=== PATIENT | male | born 1995 | race Caucasian/White ===

== ENCOUNTER 2022-08-26 21:39 | Emergency (ER) | payer OTHER, SELFPAY ==
--- NOTE | 2022-08-26 21:48 | DI.RAD.S_ITS ---
PROCEDURE: XR ANKLE LT MIN 3V INDICATIONS: pain TECHNIQUE: 3 views of the ankle were acquired. COMPARISON: None. FINDINGS: Bones: No fractures or dislocations. Ankle mortise is normally aligned. No suspicious bony lesions. Soft tissues: No tibiotalar joint effusion. Achilles tendon appears normal. IMPRESSION: No acute ankle fracture or dislocation. Ankle mortise is congruent. Dictated by: Nguyễn Hensley M.D. on 08/26/2022 at 22:12 Approved by: Nguyễn Hensley M.D. on 08/26/2022 at 22:13
[2022-08-26 21:49] VITALS: BP 101/62; PULSE 77; RESP 18; TEMP 36.6; O2SAT 97; BMI 28.5
--- NOTE | 2022-08-26 22:20 | ED_ITS ---
HPI - Extremity Injury (Lower) General Chief Complaint: Extremity Injury, Lower Stated Complaint: left foot injury Time Seen by Provider: 08/26/22 21:45 Source: patient Mode of arrival: Ambulatory Limitations: no limitations History of Present Illness HPI Narrative: Patient is a 27-year-old male here for evaluation of a left ankle injury. He states that earlier in the day he was at the [facility]. He states that he landed awkward on his left ankle. Has had some swelling and discomfort since then. Has been ambulatory but it is quite uncomfortable. No other injuries from the event. Related Data Allergies Allergy/AdvReac Type Severity Reaction Status Date / Time No Known Drug Allergies Allergy Verified 08/26/22 21:49 Review of Systems Musculoskeletal Musculoskeletal: Reports system reviewed and no additional complaints, except as documented Integumentary/Breasts Skin/Breast: Reports system reviewed and no additional complaints, except as documented Neurologic Neurologic: Reports system reviewed and no additional complaints, except as documented Patient History Medical History Healthy adult Social History Smoking Status: Never smoker Smoking Status: Never smoker Substance Use Type: does not use Exam Initial Vital Signs Initial Vital Signs: Vital Signs Temperature 98 F 08/26/22 21:49 Pulse Rate 77 08/26/22 21:49 Respiratory Rate 18 08/26/22 21:49 Blood Pressure 101/62 08/26/22 21:49 Pulse Oximetry 97 08/26/22 21:49 Oxygen Delivery Method 08/26/22 21:49 HENGA Head: normal to inspection Cardio Pulses: dorsalis pedis present on the left Skin General: no rashes or lesions noted Neuro Other: Tingling sensation to light touch on the dorsum of the left ankle Extrem Other: No proximal fibula tenderness. His Achilles tendon is intact. Is tender along the lateral and medial joint lines. No tenderness of the Lisfranc joint. Procedures Orthopedic Splinting/Casting Injury #1: Side: left Lower Extremity Injury Location: ankle Lower Extremity Immobilizer: Torsten wrap Post splinting neuro exam: no change Post splinting vascular exam: no change Placed by: Nursing Course Orders Ordered: ED Orders 08/26/22 21:48 XR ankle LT min 3V Stat Vital Signs Vital signs: Vital Signs - 8 hr 08/26/22 21:49 Temperature 98 F Pulse Rate 77 Respiratory Rate 18 Blood Pressure 101/62 Pulse Oximetry 97 Oxygen Delivery Method Room Air MDM - Extremity Injury (Lower) Imaging Data Extremity x-ray #1: Radiologist's Impression: [address] [address] XRay Report Signed Patient: Willian Hunter MR#: [id number] : 1995 Acct:[id number] Age/Sex: 27 / M Date of Service: 08/26/22 Loc: ED Accession Number: [id number] ?? Procedure: XR ankle LT min 3V Ordering Provider: Sha Reilly D.O. PROCEDURE:? XR ANKLE LT MIN 3V ? INDICATIONS:? pain ? TECHNIQUE:? 3 views of the ankle were acquired.? ? COMPARISON:? None. ? FINDINGS:? ? Bones:? No fractures or dislocations.? Ankle mortise is normally aligned.? No suspicious bony lesions.? ? Soft tissues:? No tibiotalar joint effusion.? Achilles tendon appears normal.? ? ? IMPRESSION:? No acute ankle fracture or dislocation.? Ankle mortise is congruent. ? ? ? Dictated by: Nguyễn Hensley M.D. on 08/26/2022 at 22:12 ? ? Approved by: Nguyễn Hensley M.D. on 08/26/2022 at 22:13?? [facility] Narrative Medical decision making narrative: Neurovascularly intact, no fractures on the x-rays. Was given a Torsten bandage and crutches for his ankle sprain. He was given the expected course of the next couple days. Was given return precautions. He expressed understanding and agreement. Discharge Plan Departure Patient Disposition: Home Clinical Impression: Ankle sprain and strain Instructions: How to Use Crutches, DI for Ankle Sprain, How To Perform RICE (Rest, Ice, Compress, Elevate), How to Apply an Elastic Wrap on Ankle Activity Restrictions/Additional Instructions: There were no fractures noted on the x-rays so as tolerated you can put pressure on your left ankle. Use the crutches and the elastic bandage as needed. I do recommend that you keep your ankle elevated and use ice. Can take Tylenol/ibuprofen for discomfort. Return to the emergency department for new symptoms.
[2022-08-26 22:36] VITALS: BP 104/58; PULSE 89; O2SAT 98
== END 2022-08-26 22:46 | disposition home or self-care (01) ==
PROVIDERS: Emergency Provider Emergency Medicine
DX: S93.402A Sprain of unspecified ligament of left ankle, initial encounter (principal); S96.912A Strain of unspecified muscle and tendon at ankle and foot level, left foot, initial encounter; X50.1XXA Overexertion from prolonged static or awkward postures, initial encounter; Y93.39 Activity, other involving climbing, rappelling and jumping off
CPT/HCPCS: 73610; 99283